=== PATIENT | male | born 1945 | race Caucasian/White ===

== ENCOUNTER → 2019-03-14 14:31 | Outpatient (BNVA) | payer MEDICARE, SELFPAY | PROVIDERS: Family Provider Family Medicine; PCP Family Medicine; Visit Provider Urology | DX: D09.0 Carcinoma in situ of bladder (principal) | CPT/HCPCS: 81001 ==

== ENCOUNTER 2019-03-21 15:47 | Observation (INO) | payer MEDICARE, SELFPAY ==
--- NOTE | 2019-03-18 11:53 | ECG_ITS ---
Measurements Intervals [place] Rate: 45 P: 44 W[place]: 167 QRS: -13 QRSD: 88 T: 81 QT: 411 QTc: 357 SINUS BRADYCARDIA POSSIBLE ANTERIOR MYOCARDIAL INFARCTION [30 ms Q WAVE IN V3/V4, OR R < 0.2 mV IN V4], OF INDETERMINATE AGE INTERPRETATION BASED ON A DEFAULT AGE OF 40 YEARS Compared to ECG 01/27/2018 11:23:15 Myocardial infarct finding now present T-wave abnormality no longer present Electronically Signed On 03-19-2019 11:29:44 GARBAGE PICK UP WORKER by Tai Crooks M.D. [email or web address] teague
[2019-03-18 12:02] VITALS: BMI 25.7
--- NOTE | 2019-03-18 12:15 | P.ANES_ITS ---
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
[2019-03-21] VITALS (16 sets, daily range): BP systolic 128–155; BP diastolic 77–84; PULSE 51–77; RESP 14–20; TEMP 36.3–36.8; O2SAT 90–98
[2019-03-21] MEDS: sodium chloride 0.9% 1,000 ML 30 ML IV (11:39)
--- NOTE | 2019-03-21 13:11 | PM.HPUD ---
H&P update H&P Update: DATE OF SURGERY/PROCEDURE: 03/21/19 DATE H&P PERFORMED: 03/14/19 H&P UPDATE INFORMATION: No changes to prior documentation PREOP DIAGNOSIS: CIS bladder PLANNED PROCEDURE: Operation Date: 03/21/19 13:10 Proposed Procedures p Cystoscopy 10697 D09.0(Not Applicable) - Domenico Disla MD s Transurethral Resection Bladder Tumor(Not Applicable) - Domenico Disla MD Conscious Sedation: Patient reassessed prior to sedation, with no change noted: Yes PHYSICAL EXAM: alert, oriented x 3 and clear to auscultation bilaterally Full H&P Medications/Allergies: Current Medications: Current Medications Generic Name Dose Route Start Last Admin Trade Name Freq PRN Reason Stop Dose Admin Sodium Chloride 1,000 mls @ 30 ml s/hr 03/21/19 11:30 03/21/19 11:39 Sodium Chloride 0.9% IV 03/22/19 11:29 30 mls/hr .Q24H LINDY Administration Perinent History: Medical/Surgical History: Medical History (Updated 03/14/19 @ 14:33 by Domenico Disla MD) Carcinoma in situ of bladder (Acute) Chronic cystitis (Acute) Retention of urine (Acute) Family History: Family History Father , 99 Y/O No problems noted. Mother No problems noted. 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
[2019-03-21] MEDS: levofloxacin-dextrose 5 % 500 MG/100 ML PREMIX 100 MG IV (14:45)
[2019-03-21] MEDS: lidocaine 2% Urojet 20 mL TOPICAL (15:13)
--- NOTE | 2019-03-21 15:49 | PM.OP ---
Operative Report Date of procedure: 03/21/19 Pre-op Diagnosis: CIS bladder Post-op diagnosis: same Post-op Diagnosis: Suspicious for papillary/nodular changes at the neck of the left bladder wall Hutch diverticulum. This area was fully sampled. Procedure Done: Cystoscopy, transurethral resection of bladder tumor medium Pathology: other Pathology: Left lateral anterior bladder wall Left posterior bladder wall Bladder lesion at entry into left Hutch diverticulum Surgeon: Domenico Disla Anesthesia: General Estimated blood loss: Minimal Urine output: Not measured Complications: None Findings: Some flat papillary CIS type appearing changes the left lateral anterior bladder wall Papillary lesion on the left posterior floor More nodular appearing lesion lateral to the left ureteral orifice extending just inside left Hutch diverticulum. Deeper sections taken at the spot. Condition: stable Disposition: PACU Brief History: Aryan is a very pleasant 73-year-old white male with a history of carcinoma in situ having failed BCG therapy and ultimately underwent a 6 weeks course of Valstar intravesical instillation. Follow-up cystoscopy revealed several areas of suspicious character and he is admitted for TURBT. Procedure: After routine preoperative evaluation examination and obtaining of informed consent he was taken to the operating suite on 03/21/2019 where general anesthesia was administered without difficulty after appropriate timeout was performed, SCDs confirmed to be functioning, preoperative antibiotics administered, beta-kirill protocol confirmed. Prepped and draped in usual sterile fashion in dorsolithotomy position pain careful attention to avoiding pressure points. 21 Russian cystoscope with 30 degree lens was introduced into urethral meatus and advanced into the bladder videoscopy. Bladder was systematically examined with findings as described above. Cold cup biopsy forceps were utilized to resect the papillary lesion on the left posterior floor and then Bugbee cautery probes were utilized to fulgurate the base of this area. The urethra was then calibrated with Raymond sounds and easily accommodated 30 Russian. 2% lidocaine jelly was instilled into the urethra and then a 25 Russian continuous flow resectoscope sheath with visual obturator in place was advanced into the bladder videoscopy. The super loop was utilized for resection of the lesion extending into the Hutch diverticulum to just inside with deep resection sampling just medial to the Hutch diverticulum. This resection was laterally located to the left ureteral orifice. The button probe was utilized to fulgurate this area for hemostasis. Care was taken to avoid involving the left ureteral orifice. Sampling with cold cup biopsy forceps were then performed on the left lateral toward the anterior bladder wall flat papillary changes. This area was then fulgurated as well with the button probe. On final inspection the areas of resection and fulguration were hemostatic. No additional lesions were identified. The bladder was then drained with a 20 Russian three-way Adams catheter with 30 cc placed in the balloon and light CBI was initiated.
[2019-03-21] MEDS: morphine 4 mg/mL SDV 1 mL 1 MG IVP ×2 (16:52→18:43)
[2019-03-21] MEDS: sertraline 100 mg Tablet PO (16:52)
[2019-03-21] MEDS: atorvastatin 40 mg Tablet PO (16:52)
[2019-03-21] MEDS: acetaminophen 325 mg Tablet PO (18:21)
[2019-03-21] MEDS: sodium chloride 0.9% 1,000 ML 50 ML IV (21:53)
[2019-03-21] MEDS: oxyCODONE-APAP 5-325 mg Tablet PO (23:33)
[2019-03-22] VITALS (7 sets, daily range): BP systolic 106–126; BP diastolic 50–76; PULSE 56–60; RESP 16–18; TEMP 36.6–37; O2SAT 92–97
[2019-03-22] MEDS: oxyCODONE-APAP 5-325 mg Tablet PO (09:00)
[2019-03-22] MEDS: atorvastatin 40 mg Tablet PO (09:01)
--- NOTE | 2019-03-22 12:48 | PC.CHAP ---
Pastoral Care Encounter/Spiritual Assessment Type of Contact [] Declined door fitter visit [] Patient/Family/Request visit [] Outpatient visit [] Follow-up visit [] Physician referral [] Code/Alert x] Routine visit [] Staff referral [] Actively dying [] Patient sleeping [] Family support [] [] Out of room [] Palliative care [] [] Receiving care in room [] Pre-surgical visit [] Trauma [] Long length of stay [] ICU visit [] Other: Relational/Emotional Strength [x] Patient feels connected with others/family/visitors/staff [] Distress [] Loneliness/isolation [] Abandonment Spirituality of Patient [x] Person of Karly [x] Attends Restoration of their Karly [x] Believes in Prayer [x] Reads Bible or Baptist materials [] There are Spiritual issues to be addressed Continuous Miner 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 Helper Interventions [x] Prayer [x] Active listening [x] Non-anxious presence [x] Spiritual/emotional support [] Crisis/trauma care [] Spiritual counseling [] Bereavement support [] Provided bereavement packet [] Provided Bible/devotional materials [] Provided toy/stuffed animal, coloring book to patient or family member x[x] Completed spiritual assessment [] Provided Communion [] Anointing/[place]guffey [] Salvation [] Other: Impact on Illness or Injury [] Angry [] Fearful [] Anxious [] Often cries [] Exhaustion [] Unable to work [] Unable to attend mosque [] Unable to walk/stand [] Unable to read [] Unable to drive [] Unable to eat/drink [] Unable to sleep [] Unable to be with family [] Other: Summary patient waiting to go home and to get test results Time spent with patient 120 min
--- NOTE | 2019-03-22 12:51 | P.DS_ITS ---
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 Suspicious ultrasound on follow- up March 2019 Reason for Visit Reason for Visit: Reason For Visit: Cystoscopy Transurethral Resection of Bladder tumo Hospital Course Discharge Summary: Admitted on the day of the procedure which went well. Intraoperative findings showed several areas of suspicious nature worrisome for persistent carcinoma in situ and possibly invasive disease near the entry of the left Hutch diverticulum. Postoperatively he did well. He had a lot of bladder spasms on the night of surgery but that was treated with pain medication with good response. Catheter was removed on postoperative day #1 and he voided spontaneously with clearing urine and good emptying as confirmed with PVR bladder scan. Discharge on the afternoon of postoperative day #1 in stable condition. Physical Exam Const: COMMON NORMALS: no apparent distress and oriented x3 Resp: COMMON NORMALS: normal respiratory effort EFFORT & INSPECTION: No t achypneic Neuro: COMMON NORMALS: oriented x3 Psych: COMMON NORMALS: mental status grossly normal ATTITUDE: Yes calm and Yes engaged Urinary Catheter Management^: 3-way Urethral CBI: Cath Placed During This Visit: no Discharge Data Data Completed and Pending: Pending at discharge Category Date Time Status Pathology: Surgic al [PTH] Routine Pth 03/21/19 15:39 Received Vitals: Last Vital Signs Temp 97.9 F 03/22/19 10:53 Pulse 56 L 03/22/19 10:53 Resp 16 03/22/19 10:53 BP 118/76 03/22/19 10:53 Pulse Ox 94 03/22/19 10:53 Discharge Plan Discharge Patient Disposition: Home, Self-Care Condition: Stable Prescriptions: Continued sertraline [Zoloft] 100 mg tablet 100 mg PO Q24H RF: 0 rosuvastatin [Crestor] 10 mg tablet 10 mg PO DAILY RF: 0 coenzyme Q10 60 mg tablet 60 mg PO DAILY RF: 0 acetaminophen [Tylenol] 325 mg capsule 325 mg PO ONCE PRN (Reason: Breakthrough Pain, Moderate) RF: 0 glucosamine sulfate [Glucosamine] 500 mg tablet 500 mg PO DAILY RF: 0 meloxicam 15 mg tablet 15 mg PO .PRN RF: 0 sulfamethoxazole-trimethoprim 800-160 mg tablet 1 tab PO BID Qty: 60 RF: 2 Held aspirin [Aspir-81] 81 mg tablet,delayed release (DR/EC) 81 mg PO DAILY RF: 0 Hold Instructions: Resume on 03/30/19. Discharge Orders: Discharge Order (Routine); Ordered 03/22/19 Ordered By: Domenico Disla Referrals: Domenico Disla MD [Physician] - 3 months (TBA follow-up pending path report results Call late this week or early next week for pathology report) Discharge Activity: Limit activity as instructed Discharge Attestations Time Spent in Discharge Care*: less than 30 min Status at Discharge: Cognitive status at discharge: cognitively intact , Behavioral status at discharge: cooperative , Functional status at discharge: independent ambulation Overall status at discharge: patient is back to baseline Quality Metrics Clinical Quality Measures During this hospital stay, did patient experience: None Coding Level of Care Code Acute Mechanical Estimator for Monique Trinidad Diagnoses Carcinoma in situ of bladder D09.0
== END 2019-03-22 14:08 | disposition home or self-care (01) ==
LOC: MEDSURG 15:48
PROVIDERS: Admitting Provider Urology; Family Provider Family Medicine; PCP Family Medicine; Visit Provider Urology
PROC: 0TJB8ZZ Inspection of Bladder, Via Natural or Artificial Opening Endoscopic (ICD-10-PCS; CPT 52000; principal; 2019-03-21 13:10)
PROC: 0TBB8ZZ Excision of Bladder, Via Natural or Artificial Opening Endoscopic (ICD-10-PCS; CPT 52235; 2019-03-21 13:10)
DX: D09.0 Carcinoma in situ of bladder (principal); Z90.79 Acquired absence of other genital organ(s); Z87.891 Personal history of nicotine dependence
CPT/HCPCS: 52235; 12345; 51798; 88305; 93005; 96365; 96375; G0378; J1956; J2001; J2270; J2405; J2704; J3010; J3490; J7030

== ENCOUNTER 2019-03-23 03:21 | Observation (INO) | payer MEDICARE, SELFPAY ==
[2019-03-23 03:22] VITALS: BP 162/100; PULSE 88; RESP 16; TEMP 36.8; O2SAT 100
--- NOTE | 2019-03-23 03:27 | ED_ITS ---
Entered by Manjula Manuel, acting as scribe for Bre Salter HPI - Male Genitourinary General: Chief complaint: Urogenital-Male Stated complaint: NEEDS CATHETER Time Seen by Provider: 03/23/19 03:26 Source: patient and family Mode of arrival: ambulatory History of Present Illness: HPI Narrative: 73 y/o male presents to the ED with complaint of urinary retension. Pt was sent here by Dr. Disla. He recently had a bladder biopsy and has been unable to void since then. MD Complaint: other (Unable to void) Onset (ago): hour(s) Duration: constant Relieving factors: none Context: recent surgery Associated symptoms: Reports urinary retention; Deny nausea or vomiting Review of Systems Const: Denies: fever, chills, body aches, fatigue, malaise or diaphoresis Eyes: Denies: change in vision or blurry vision ENMT: Denies: throat pain, painful swallowing, hoarseness, ear pain, ear discharge, Change in hearing or nasal discharge Card: Denies: chest pain, palpitations, irregular heart rhythm, syncope, pre- syncope, shortness of breath on exertion or shortness of breath when lying down Resp: Denies: shortness of breath, productive cough, non-productive cough, wheezing, coughing up blood or chest congestion GI: Denies: abdominal pain, nausea, vomiting, vomiting blood, coffee grounds in vomit, diarrhea, constipation, cramping, blood in stool or black tarry stool Musc: Denies: neck pain, back pain, extremity pain, extremity swelling, joint pain, joint swelling, joint warmth or joint stiffness Skin/Breast: Denies: rash, skin tenderness or yellow skin Neuro: Denies: headache, numbness in extremities, weakness in extremities, ch anges in sensation, lack of coordination, difficulty walking, dizziness, vertigo or confusion Endo: Denies: excessive thirst, tired all the time, cold intolerance, excessive sweating, flushing or hot flashes Blaise/Lymph: Denies: easy bruising, easy bleeding, petechiae or enlarged lymph nodes All/Imm: Denies: hives, throat swelling, tongue swelling, facial swelling or acute wheezing PFSH ED PFSH: Statuses (acute, chronic, etc) shown below reflect problem list status as previously entered and may not be historically accurate Medical History (Updated 03/23/19 @ 04:30 by Bre Salter) 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 Suspicious ultrasound on follow-up March 2019 Chronic cystitis (Acute) Retention of urine (Acute) Surgical History S/P TURP (Acute) Social History Smoking and tobacco status: former smoker Alcohol intake: current Alcohol intake frequency: few times a month Marital status: Current occupational status: retired Physical Exam Const: COMMON NORMALS: no apparent distress, oriented x3, no limitations, healthy appearing and well nourished EXAM LIMITATIONS: no altered mental status GENERAL APPEARANCE: cooperative, well kempt and well developed ORIENTATION/CONSCIOUSNESS: Yes awake HENMT: COMMON NORMALS: normocephalic, head/scalp atraumatic, hearing grossly normal bilaterally, external ears normal, EAC's normal, external nose normal and moist oral mucous membranes HEAD & SCALP: normal to inspection, normocephalic and atraumatic FACE & SINUS: normal facial exam and face symmetric NOSE: external nose normal and nares normal EXTERNAL EAR: Yes external ears normal EXTERNAL AUDITORY CANAL: EAC's normal MOUTH: oral and palatal mucosa normal and tongue normal Eye: COMMON NORMALS: PERRL, EOMs intact bilaterally, conjunctivae normal and no scleral icterus GENERAL EYE: normal appearance of both eyes and normal light reflex CONJUNCTIVA: Yes conjunctivae normal SCLERA: sclerae normal CORNEA: Yes corneas normal PUPIL: Yes PERRL DIRECT OPHTHALMOSCOPY: Yes normal light reflex Neck/C-Spine: COMMON NORMALS: full ROM, no lymphadenopathy, supple, no meningeal signs and no JVD GENERAL: Yes normal visual inspection and Yes trachea midline CERVICAL SPINE: Yes cervical ROM normal Chest: COMMONS NORMALS: inspection of chest normal and palpation of chest normal Resp: COMMON NORMALS: normal respiratory effort, no retractions, no use of accessory muscles and clear to auscultation bilaterally EFFORT & INSPECTION: Yes able to speak in complete sentences AUSCULTATION: clear to auscultation bilaterally Cardio: COMMON NORMALS: no JVD, regular rate, regular rhythm, S1 normal heart sound, S2 normal heart sound, no gallops, no clicks, no murmurs and no rub JUGULAR VENOUS DISTENTION: no JVD RATE: regular rate RHYTHM: regular rhythm HEART SOUNDS: S1 normal and S2 normal GI: COMMON NORMALS: soft to palpation, non-tender, no hepatosplenomegaly and no masses INSPECTION: Yes normal to inspection PALPATION: Yes soft and Yes no hepatosplenomegaly : COMMON NORMALS: Yes no CVA tenderness BLADDER/KIDNEY EXAM: Yes no CVA tenderness Back/Pelvis: COMMON NORMALS: no CVA tenderness, thoracic and lumbar spine normal to inspection, no thoracic nor lumbar tenderness and thoraco-lumbar ROM normal Extremity: COMMON NORMALS: normal to inspection, full ROM, normal capillary refill, no joint enlargement, no clubbing, cyanosis or edema and no calf tenderness Neuro: COMMON NORMALS: oriented x3, CN's II-XII intact bilaterally, moves all extremities, no focal motor deficits and no sensory deficits noted MENINGEAL SIGNS: Yes no meningeal signs Psych: COMMON NORMALS: mental status grossly normal, thought process normal, cooperative, affect normal, speech normal and activity/motor behavior normal APPEARANCE: Yes well kempt SPEECH: Yes normal speech THOUGHT PROCESS: normal thought process Skin: COMMON NORMALS: no rashes or lesions noted, skin turgor normal, no jaundice, no petechiae and no mottling GENERAL SKIN EXAM: no rashes or lesions noted and turgor normal Course Vital Signs: Vital signs: Vital Signs Temperature 98.2 F 03/23/19 03:22 Pulse Rate 74 03/23/19 03:39 Respiratory Rate 23 H 03/23/19 03:39 Blood Pressure 183/103 03/23/19 03:39 Pulse Oximetry 95 03/23/19 03:39 MDM - Male MDM Narrative: Medical decision making narrative: The case was reviewed with Dr. Disla, he recommends admission for continuous bladder irrigation. Place the patient in the medical floor and monitor there. Lab Data: Attestation: I reviewed the patient's lab results. Labs: Lab Results 03/23/19 03/23/19 03/23/19 Range/Units 03:40 03:40 03:40 WBC 8.7 (4.0-10.0) 10^3/ uL RBC 5.09 (4.1-5.3) 10^6/u L Hgb 15.5 (11.7-16.6) g/dL Hct 44.1 (42.0-52.0) % MCV 86.6 (80-94) fL MCH 30.5 (28.0-34.0) pg MCHC 35.1 (30.0-36.0) g/dL RDW 12.3 (12.1-15.1) % Plt Count 170 (130-400) 10^3/c mm MPV 9.1 (7.4-10.4) fL Neut % (Auto) 77.1 % Lymph % (Auto) 12.8 % [place] % (Auto) 9.6 % Eos % (Auto) 0.1 % Baso % (Auto) 0.1 % Neut # (Auto) 6.7 (1.8-7.7) 10^3/u L Lymph # (Auto) 1.1 (0.8-4.8) 10^3/u L [place] # (Auto) 0.8 (0.2-0.9) 10^3/u L Eos # (Auto) 0.0 (0.0-0.8) 10^3/u L Baso # (Auto) 0.0 (0.0-0.1) 10^3/u L Nucleated RBC % (a uto) 0 % Nucleated RBCs # 0.0 /100WBC PT 13.70 H (10.5-13.3) SECO NDS INR 1.02 (0.8-1.2) APTT 30.1 (23.9-36.7) SECO NDS Sodium 138 (136-145) mmol/L Potassium 4.1 (3.5-5.1) mmol/L Chloride 100 (98-107) mmol/L Carbon Dioxide 19 L (22-29) mmol/L Anion Gap 23.1 H (5-19) BUN 16 (8-23) mg/dL Creatinine 1.6 H (0.7-1.2) mg/dL Glucose 151 H (74-106) mg/dL Calcium 10.5 H (8.8-10.2) mg/Dl Total Bilirubin 1.5 H (0.15-1.2) mg/dL AST 26 (0-40) U/L ALT 24 (0-41) U/L Alkaline Phosphata se 60 (40-130) IU/L Total Protein 7.1 (6.6-8.7) g/dL Albumin 4.6 (3.5-5.2) g/dL Globulin 2.5 (1.3-4.6) g/dL Discharge Plan Discharge Patient Disposition: Placed in Observation Clinical Impression: Acute retention of urine Condition: Stable Prescriptions: No Action sertraline [Zoloft] 100 mg tablet 100 mg PO Q24H RF: 0 rosuvastatin [Crestor] 10 mg tablet 10 mg PO DAILY RF: 0 coenzyme Q10 60 mg tablet 60 mg PO DAILY RF: 0 acetaminophen [Tylenol] 325 mg capsule 325 mg PO ONCE PRN (Reason: Breakthrough Pain, Moderate) RF: 0 aspirin [Aspir-81] 81 mg tablet,delayed release (DR/EC) 81 mg PO DAILY RF: 0 Hold Instructions: Resume on 03/30/19. glucosamine sulfate [Glucosamine] 500 mg tablet 500 mg PO DAILY RF: 0 meloxicam 15 mg tablet 15 mg PO .PRN RF: 0 sulfamethoxazole-trimethoprim 800-160 mg tablet 1 tab PO BID Qty: 60 RF: 2 Referrals: Erik Carlin DO [Primary Care Provider] - Coding Level of Care Code ED Developer Relations Manager for Chg Fwd Exam Problem Focused The documentation recorded by the Kaleb lennon Ashley, accurately reflects the service I personally performed and the decisions made by Joie cohen Eli N Mar 23, 2019 03:21
[2019-03-23 03:31] VITALS: BMI 28.7
[2019-03-23 03:39] VITALS: BP 183/103; PULSE 74; RESP 23; O2SAT 95
[2019-03-23 03:47] LABS: Basophils % 0.1 %; Eosinophils % 0.1 %; Hematocrit 44.1 % (42.0-52.0); Hemoglobin 15.5 g/dL (11.7-16.6); Lymphocytes # 1.1 10^3/uL (0.8-4.8); Lymphocytes % 12.8 %; Mean Corpuscular HGB Conc 35.1 g/dL (30.0-36.0); Mean Corpuscular Hemoglobin 30.5 pg (28.0-34.0); Mean Corpuscular Volume 86.6 fL (80-94); Mean Platelet Volume 9.1 fL (7.4-10.4); Monocytes # 0.8 10^3/uL (0.2-0.9); Monocytes % 9.6 %; Neutrophils # 6.7 10^3/uL (1.8-7.7); Neutrophils % 77.1 %; Nucleated Red Blood Cells % 0 %; Platelet Count 170 10^3/cmm (130-400); Red Blood Count 5.09 10^6/uL (4.1-5.3); Red Cell Distribution Width 12.3 % (12.1-15.1); White Blood Count 8.7 10^3/uL (4.0-10.0)
--- NOTE | 2019-03-23 03:51 | PC.NURSE ---
patient had immediate pain release once catheter was placed. 1000ml of red brown urine drained from bladder upon insertion of catheter. This nurse clamped catheter off per protocol for bladder relaxation.
[2019-03-23 03:57] LABS: INR 1.02 (0.8-1.2)
[2019-03-23 03:58] LABS: Partial Thromboplastin Time 30.1 SECONDS (23.9-36.7)
[2019-03-23 04:06] LABS: Alanine Aminotransferase 24 U/L (0-41); Albumin Level 4.6 g/dL (3.5-5.2); Alkaline Phosphatase 60 IU/L (40-130); Anion Gap 23.1 (5-19); Aspartate Amino Transferase 26 U/L (0-40); Blood Urea Nitrogen 16 mg/dL (8-23); Calcium 10.5 mg/Dl (8.8-10.2); Carbon Dioxide 19 mmol/L (22-29); Chloride 100 mmol/L (98-107); Globulin 2.5 g/dL (1.3-4.6); Glucose 151 mg/dL (74-106); Potassium 4.1 mmol/L (3.5-5.1); Sodium 138 mmol/L (136-145); Total Bilirubin 1.5 mg/dL (0.15-1.2); Total Protein 7.1 g/dL (6.6-8.7)
[2019-03-23 04:36] LABS: Urine Color Brown (Yellow)
[2019-03-23 04:37] LABS: Bilirubin Urine 2+ (NEGATIVE); Blood Urine 3+ (Negative); Glucose Urine UA Norm (Normal); Ketones Urine Negative (Negative); Leukocyte Esterase Urine Negative (Negative); Nitrate Urine Positive (Negative); Protein Urine 3+ (Negative); Specific Gravity, Urine 1.015 (1.005-1.030); Urine Appearance Cloudy (CLEAR); Urobilinogen Urine 4 mg/dL (Negative); pH Urine 5 (5-7)
[2019-03-23 04:38] LABS: Add Urine Culture? Yes; Bacteria Urine 2+; RBC Urine TOO NUMEROUS TO CNT /hpf (0-2)
[2019-03-23 05:23] VITALS: BP 127/71; PULSE 60; RESP 18; O2SAT 93
[2019-03-23 07:22] VITALS: BP 112/68; PULSE 72; RESP 16; O2SAT 92
[2019-03-23 10:58] VITALS: BP 103/68; PULSE 59; RESP 18; O2SAT 96
[2019-03-23 11:12] VITALS: BP 126/74; PULSE 53; RESP 18; TEMP 36.9; O2SAT 97
[2019-03-23] MEDS: sodium chloride 0.9% 1,000 ML 100 ML IV (11:45)
--- NOTE | 2019-03-28 13:03 | PM.SDS ---
Short Stay Summary Providers Date of Admit/Discharge: 03/28/19 Attending Provider: Domenico Disla MD Primary Care Provider: Erik Carlin DO Chief Complaint: Urinary ret HPI History of Present Illness Victor M Anderson is a 73 year old male who is 1 day status post TURBT and discharge from the hospital yesterday. He had a successful voiding trial. Called very early this morning with complaints of urinary retention. Presented to the emergency department where a catheter was placed with about a liter of urine drained and immediate relief. Initially the urine was somewhat bloody but had improved over the night. Because of his distance from home being well over an hour on less than ideal roads it was elected that he stay be observed as outpatient in a bed for enough time to confirm that his catheter was functioning well enough for him to be discharged with a catheter in place. Review of Systems Const: Denies: fever or chills Eyes: Denies: change in vision Card: Denies: chest pain or palpitations Resp: Denies: shortness of breath or productive cough GI: Reports: abdominal pain and feeling full early : Reports: difficulty urinating and difficulty starting urination; Denies: flank pain Psych: Reports: anxiety (Related to pain from urinary retention) Blaise/Lymph: Denies: easy bleeding Home Meds/Allergies Home Medications and Allergies Home Medications Medication Instructions Recorded Confirmed Type acetaminophen 325 mg capsule 325 mg PO PRN PRN 03/14/19 03/25/19 History aspirin 81 mg tablet,delayed 81 mg PO DAILY tab 03/14/19 03/25/19 History release coenzyme Q10 60 mg tablet 60 mg PO DAILY tab 03/14/19 03/25/19 History glucosamine sulfate 500 mg tablet 500 mg PO DAILY tab 03/14/19 03/25/19 History meloxicam 15 mg tablet 15 mg PO .PRN tab 03/14/19 03/25/19 History rosuvastatin 10 mg tablet 10 mg PO DAILY tab 03/14/19 03/25/19 History sertraline 100 mg tablet 100 mg PO DAILY 03/14/19 03/25/19 History Allergies Allergy/AdvReac Type Severity Reaction Status Date / Time No Known Allergies Allergy Unverified 02/28/19 14:28 PFSH Acute PFSH: Statuses (acute, chronic, etc) shown below reflect problem list status as previously entered and may not be historically accurate Medical History 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 Suspicious ultrasound on follow-up March 2019 Chronic cystitis (Acute) Retention of urine (Acute) Surgical History S/P TURP (Acute) Family History Father , 99 Y/O No problems noted. Mother No problems noted. Social History Smoking and tobacco status: former smoker Alcohol intake: current Alcohol intake frequency: few times a month Marital status: Current occupational status: retired Vitals/I&O/Wt Last Vital Signs Temp 98.4 F 03/23/19 11:12 Pulse 53 L 03/23/19 11:12 Resp 18 03/23/19 11:12 BP 126/74 03/23/19 11:12 Pulse Ox 97 03/23/19 11:12 Physical Exam Const: COMMON NORMALS: no apparent distress, alert and well nourished GENERAL APPEARANCE: well kempt and well developed ORIENTATION/CONSCIOUSNESS: not confused HENMT: COMMON NORMALS: normocephalic and head/scalp atraumatic HEAD & SCALP: normocephalic and atraumatic Eye: COMMON NORMALS: conjunctivae normal and no scleral icterus CONJUNCTIVA: Yes conjunctivae normal Neck/C-Spine: COMMON NORMALS: full ROM GENERAL: Yes normal visual inspection Resp: COMMON NORMALS: normal respiratory effort EFFORT & INSPECTION: No labored and No actively coughing : OTHER: Urine is clear Extremity: COMMON NORMALS: no clubbing, cyanosis or edema Neuro: COMMON NORMALS: no focal motor deficits SENSORIUM/ORIENTATION: Yes alert Psych: COMMON NORMALS: mental status grossly normal APPEARANCE: Yes grossly normal and Yes well kempt ATTITUDE: Yes calm and Yes engaged Skin: COMMON NORMALS: no rashes or lesions noted and no jaundice GENERAL SKIN EXAM: no rashes or lesions noted Urinary Catheter Management^: 3-way Urethral CBI Latex Free: Cath Placed During This Visit: no Hospital Course Discharge Summary: Admitted through the emergency department for urinary retention postoperative TURBT. After catheter placement he improved dramatically. He was placed on light CBI which was slowly tapered over the course of the evening and into the day. It was able to be stopped with no recurrent hematuria. We elected to maintain the Adams catheter for bladder rest and remove it in my office on follow-up. He was discharged in stable condition. 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 Suspicious ultrasound on follow-up March 2019 Discharge Plan Discharge Patient Disposition: Home, Self-Care Condition: Stable Prescriptions: New tamsulosin 0.4 mg capsule 0.4 mg PO DAILY Qty: 30 RF: 5 Continued sertraline [Zoloft] 100 mg tablet 100 mg PO DAILY RF: 0 rosuvastatin [Crestor] 10 mg tablet 10 mg PO DAILY RF: 0 coenzyme Q10 60 mg tablet 60 mg PO DAILY RF: 0 acetaminophen [Tylenol] 325 mg capsule 325 mg PO PRN PRN (Reason: Breakthrough Pain, Moderate) RF: 0 aspirin [Aspir-81] 81 mg tablet,delayed release (DR/EC) 81 mg PO DAILY RF: 0 Hold Instructions: Resume on 03/30/19. glucosamine sulfate [Glucosamine] 500 mg tablet 500 mg PO DAILY RF: 0 sulfamethoxazole-trimethoprim 800-160 mg tablet 1 tab PO BID Qty: 60 RF: 2 Held meloxicam 15 mg tablet 15 mg PO .PRN RF: 0 Hold Instructions: Resume on 03/30/19. Discharge Orders: Discharge Order (Routine); Ordered 03/23/19 Ordered By: Domenico Disla Referrals: Erik Carlin DO [Primary Care Provider] - Domenico Disla MD [Physician] - 03/25/19 (Appointment with Dr. Disla on 03/25/2019 at 10:00 am. If weather prevents please call the office to reschedule this appointment. Voiding trial, [facility] instruction, pathology report check.) Discharge Diet: Usual diet Discharge Activity: Limit activity as instructed Patient Instructions: Tamsulosin (By mouth), Urinary Retention in Men (GEN), Bladder Cancer (DC) Discharge Date/Time: 03/23/19 14:55 Attestations Medical Necessity Statement*: Required outpatient in a bed observation because of urinary retention with subsequent gross hematuria, continuous bladder irrigation Recovered quickly and discharged. Time Spent in Patient Care*: greater than 30 min Status at Discharge: Cognitive status at discharge: cognitively intact, Behavioral status at discharge: cooperative, Quality Metrics Clinical Quality Measures: During this hospital stay, did patient experience: None Coding Level of Care Code Acute Force Adjustment Supervisor for Monique Fwluis Diagnoses Acute retention of urine R33.8 Carcinoma in situ of bladder D09.0
== END 2019-03-23 14:55 | disposition home or self-care (01) ==
LOC: ER 06:12 → MEDSURG 10:54
PROVIDERS: Admitting Provider Urology; Emergency Provider Emergency Medicine; Family Provider Family Medicine; PCP Family Medicine; Visit Provider Urology
DX: R33.8 Other retention of urine (principal); D09.0 Carcinoma in situ of bladder; Z79.82 Long term (current) use of aspirin; Z87.891 Personal history of nicotine dependence
CPT/HCPCS: 12345; 36415; 51702; 80053; 81001; 85025; 85610; 85730; 87086; 99283; 99285; G0378; J7030

== ENCOUNTER 2019-03-31 07:10 | Outpatient (CLI) | payer MEDICARE, SELFPAY ==
[2019-03-31 07:53] LABS: Basophils % 0.8 %; Eosinophils # 0.2 10^3/uL (0.0-0.8); Hematocrit 46.5 % (42.0-52.0); Hemoglobin 15.8 g/dL (11.7-16.6); Lymphocytes # 1.4 10^3/uL (0.8-4.8); Lymphocytes % 27.2 %; Mean Corpuscular Hemoglobin 31.1 pg (28.0-34.0); Mean Corpuscular Volume 91.5 fL (80-94); Mean Platelet Volume 8.8 fL (7.4-10.4); Monocytes # 0.5 10^3/uL (0.2-0.9); Monocytes % 10.1 %; Neutrophils # 2.9 10^3/uL (1.8-7.7); Neutrophils % 58.1 %; Nucleated Red Blood Cells % 0 %; Platelet Count 188 10^3/cmm (130-400); Red Blood Count 5.08 10^6/uL (4.1-5.3); Red Cell Distribution Width 12.4 % (12.1-15.1)
[2019-03-31 08:11] LABS: Alanine Aminotransferase 33 U/L (0-41); Albumin Level 4.3 g/dL (3.5-5.2); Alkaline Phosphatase 61 IU/L (40-130); Anion Gap 16.2 (5-19); Aspartate Amino Transferase 24 U/L (0-40); Blood Urea Nitrogen 17 mg/dL (8-23); Calcium 9.3 mg/dL (8.5-10.5); Carbon Dioxide 22 mmol/L (22-29); Chloride 104 mmol/L (98-107); Globulin 2.9 g/dL (1.3-4.6); Glucose 121 mg/dL (74-106); Potassium 4.2 mmol/L (3.5-5.1); Sodium 138 mmol/L (136-145); Total Bilirubin 0.5 mg/dL (0.15-1.2); Total Protein 7.2 g/dL (6.6-8.7)
[2019-03-31] MEDS: iodixanol 320 mg/mL 100mL Btl IV (08:58)
--- NOTE | 2019-03-31 09:00 | XR_ITS ---
WS: [id number] Chest 2 views, 03/31/2019 Clinical Data: CARCINOMA IN SITU OF BLADDER Comparison: None. Findings: No nodules, masses or effusions are seen. The heart is normal. The pulmonary vascularity is not increased. No pneumonia or pneumothorax is seen. The aortic arch and descending aorta are tortuo us. Midline sternotomy sutures are present. XR/XR chest 2V* [id number] Impression: Atherosclerosis.
--- NOTE | 2019-03-31 09:00 | CT_ITS ---
WS: [id number] CT ABDOMEN PELVIS TECHNIQUE: Noncontrast CT of the abdomen and contrast-enhanced CT of the abdomen and pelvis with dyana nal and sagittal reformatted images. CLINICAL INFORMATION: CARCINOMA IN SITU OF BLADDER COMPARISON: CT August 26, 2017 DLP: 2230.[address] scans at [facility] use at least one of these dose optimization techniques: automat ed exposure control; mA and/or kV adjustment per patient size (includes targeted exams where dose is matched to clinical indication); or iterative reconstruction. FINDINGS: Mild left hydronephrosis. Normal left renal parenchymal enhancement. Left ureter is dilated down to t he UVJ. Thickening and enhancement involving the distal left ureter at the UVJ with left eccentric an d dorsal bladder thickening. Findings consistent with known bladder carcinoma. Normal right renal parenchymal enhancement. Normal right ureter. No right hydronephrosis. No pelvic o r inguinal lymphadenopathy. Mild prostate enlargement measuring 4.6 x 3.5 CM. Mild induration about t he seminal vesicles and dorsal bladder. No enlarged lymph nodes. Slight bibasilar atelectasis. Noncalcified pulmonary nodule in the right upper lobe laterally measuri ng 4.5 mm. Diffuse fatty infiltration of the liver. Normal portal vein and splenic vein. Cholelithias is. Normal spleen. Normal pancreas. Small splenule. Adrenal glands are normal. Normal caliber abdomin al aorta. Aortic Calcification. Sigmoid diverticulosis. Scattered stool in the colon. No evidence of small or large bowel obstruction. Normal appendix. Incidental fat-containing left inguinal hernia. CT/CT abdomen pelvis wo/w [id number] IMPRESSION: 1. Mild left hydronephrosis with left ureterectasis. Submucosal enhancement in volving the distal ureter at the UVJ. Diffuse thickening of the left bladder an d dorsal bladder with enhancement. Findings consistent with known bladder carci noma in situ. 2. Right kidney and ureter are normal. 3. Mild induration about the seminal vesicles and dorsal bladder. No enlarged lymph nodes or pelvic lymphadenopathy. 4. No periaortic or inguinal lymphadenopathy. 5. Noncalcified nodule in the right upper lobe laterally measuring 4.5 mm. Th is could be further evaluated chest CT. 6. Cholelithiasis.
== END 2019-03-31 07:11 | disposition home or self-care (01) ==
LOC: RAD 07:16
PROVIDERS: Family Provider Family Medicine; PCP Family Medicine; Visit Provider Urology
DX: D09.0 Carcinoma in situ of bladder (principal); I70.90 Unspecified atherosclerosis; N13.30 Unspecified hydronephrosis; N13.4 Hydroureter; K80.20 Calculus of gallbladder without cholecystitis without obstruction
CPT/HCPCS: 36415; 71046; 74178; 80053; 81001; 85025